=== PATIENT | female | born 1960 | race Caucasian/White ===

== ENCOUNTER 2019-11-23 08:07 | Outpatient (CLI) | payer OTHER, SELFPAY ==
--- NOTE | ~2019-11-23 | MM_ITS ---
EXAMINATION: MM screening [facility] BI w silver HISTORY: Screening mammogram TECHNIQUE: Craniocaudal and mediolateral oblique 3-D tomosynthesis images were obtained and synthetic 2-D images were generated. CAD analysis was submitted and interpreted. COMPARISON: 11/01/2018, 10/29/2017, 10/26/2016 BREAST PARENCHYMAL COMPOSITION: There are scattered areas of fibroglandular density. FINDINGS: Scattered benign-appearing calcifications are present. There is no evidence of suspicious m ass, calcification, or architectural distortion to suggest malignancy in either breast. There has bee n no suspicious interval change. IMPRESSION: 1. No mammographic evidence of malignancy. 2. Recommend routine screening mammography in one year. BI-RADS Category 2: Benign finding(s). Reviewed, dictated and finalized at location A.
== END 2019-11-23 08:08 | disposition home or self-care (01) ==
PROVIDERS: PCP Internal Medicine; Visit Provider Internal Medicine
DX: Z12.31 Encounter for screening mammogram for malignant neoplasm of breast (principal)
CPT/HCPCS: 77063; 77067

== ENCOUNTER 2020-12-04 07:53 | Outpatient (CLI) | payer OTHER, SELFPAY ==
--- NOTE | ~2020-12-04 | DEXA_ITS ---
Bone Density Report Name: Melanie Quinn Age: 60 Sex: Female Ethnicity: White Date of : 1960 Indication: postmenopausal; parental hip fracture; prior fracture; Referring Provider: Rosalie Greenfield Study: Bone densitometry was performed. Exam Date: December 04, 2020 Accession number: [id number] Bone Density: Region BMD T-score Z-score Classification AP Spine (L1-L4) 0.950 -0.9 0.6 Normal Femoral Neck (Left) 0.758 -0.8 0.5 Normal Total Hip (Left) 0.863 -0.6 0.3 Normal Total Hip Bilateral Avg 0.888 -0.4 0.5 Normal Femoral Neck (Right) 0.786 -0.6 0.7 Normal Total Hip (Right) 0.912 -0.2 0.7 Normal World Health Organization criteria for BMD impression classify patients as: Normal (T-score at or above -1.0), Osteopenia (T-score between -1.0 and -2.5), or Osteoporosis (T-score at or below -2.5). 10-year Fracture Risk: FRAX not reported because: All T-scores for Spine Total, Hip Total, Femoral Neck at or above -1.0 Previous Exams: Region Exam Age BMD T-score BMD Change BMD Change Date g/cm2 vs Baseline vs Previous AP Spine(L1-L4) 12/04/2020 60 0.950 -0.9 -0.083(-8.0%)# -0.038(-3.8%)* 02/03/2018 57 0.988 -0.5 -0.045(-4.4%)# -0.045(-4.4%)# 09/03/2011 51 1.033 -0.1 Total Hip(Left) 12/04/2020 60 0.863 -0.6 -0.088(-9.3%)# 0.007(0.8%) 02/03/2018 57 0.857 -0.7 -0.095(-10.0%) -0.095(-10.0%) 09/03/2011 51 0.951 0.1 Total Hip(Right) 12/04/2020 60 0.912 -0.2 -0.072(-7.3%)# 0.044(5.0%)* 02/03/2018 57 0.868 -0.6 -0.115(-11.7%) -0.115(-11.7%) 09/03/2011 51 0.983 0.3 *Denotes significance at 95% confidence level, LSC for AP Spine = 0.022 g/cm2, LSC for Total Hip = 0.027 g/cm2 Clinical Information Provided by Patient: Has had a low trauma fracture Parent has had a hip fracture Has used the following medications: Calcium Patient maximum height was 65 Does not regularly consume dairy products Drinks caffeinated beverages Onset of menses at age 13 Number of children 5 Impression: The patient has normal bone mass. The patient has risk factors, including: parental hip fracture, previous fracture. The BMD for the AP Spine(L1-L4) decreased, changing by -3.8% since the last DXA exam. Discussion: BONE DENSITY IS ABOVE THE MINIMUM DESIRABLE LEVEL AT ALL SKELETAL SITES TESTED. This patient?s bone mineral density is above the minimum desirable level (T-score -1.0 or better) at all sites measured. The patient should follow
--- NOTE | ~2020-12-04 | MM_ITS ---
EXAMINATION: MM screening [facility] BI w silver HISTORY: Screening TECHNIQUE: Craniocaudal and mediolateral oblique 3-D tomosynthesis images were obtained and synthetic 2-D images were generated. CAD analysis was submitted and interpreted. COMPARISON: Comparison to multiple prior studies sequentially, with oldest reviewed study dated 09/27. BREAST PARENCHYMAL COMPOSITION: There are scattered areas of fibroglandular density. FINDINGS: There is no evidence of suspicious mass, calcification, or architectural distortion to sugg est malignancy in either breast. There has been no suspicious interval change. IMPRESSION: 1. No mammographic evidence of malignancy. 2. Recommend routine screening mammography in one year. BI-RADS Category 1: Negative Reviewed, dictated and finalized at location A.
== END 2020-12-04 07:54 | disposition home or self-care (01) ==
PROVIDERS: PCP Internal Medicine; Visit Provider Obstetrics & Gynecology
DX: Z12.31 Encounter for screening mammogram for malignant neoplasm of breast (principal); Z78.0 Asymptomatic menopausal state
CPT/HCPCS: 77063; 77067; 77080

== ENCOUNTER 2021-12-10 08:26 | Outpatient (CLI) | payer OTHER, SELFPAY ==
--- NOTE | ~2021-12-10 | MM_ITS ---
EXAMINATION: MM screening [facility] BI w silver HISTORY: Screening TECHNIQUE: Craniocaudal and mediolateral oblique 3-D tomosynthesis images were obtained and synthetic 2-D images were generated. CAD analysis was submitted and interpreted. COMPARISON: Comparison to multiple prior studies sequentially, with oldest reviewed study dated 10/23. BREAST PARENCHYMAL COMPOSITION: There are scattered areas of fibroglandular density. FINDINGS: There is no evidence of suspicious mass, calcification, or architectural distortion to sugg est malignancy in either breast. There has been no suspicious interval change. IMPRESSION: 1. No mammographic evidence of malignancy. 2. Recommend routine screening mammography in one year. BI-RADS Category 1: Negative Reviewed, dictated and finalized at location A.
== END 2021-12-10 08:27 | disposition home or self-care (01) ==
LOC: ANHIMG 08:28
PROVIDERS: PCP Internal Medicine; Visit Provider Obstetrics & Gynecology
DX: Z12.31 Encounter for screening mammogram for malignant neoplasm of breast (principal)
CPT/HCPCS: 77063; 77067

== ENCOUNTER 2023-01-15 08:14 | Outpatient (CLI) | payer OTHER, SELFPAY ==
--- NOTE | ~2023-01-15 | MM_ITS ---
EXAMINATION: MM screening [facility] BI w silver HISTORY: Screening mammogram TECHNIQUE: Craniocaudal and mediolateral oblique 3-D tomosynthesis images were obtained and synthetic 2-D images were generated. CAD analysis was submitted and interpreted. COMPARISON: 12/10/2021, 12/04/2020, 11/23/2019 BREAST PARENCHYMAL COMPOSITION: There are scattered areas of fibroglandular density. FINDINGS: No suspicious mass, calcification, or architectural distortion are identified in either merissa ast to suggest malignancy. There has been no suspicious interval change. IMPRESSION: 1. No mammographic evidence of malignancy. 2. Recommend routine screening mammography in one year. BI-RADS Category 1: Negative Reviewed, dictated and finalized at location A.
== END 2023-01-15 08:15 | disposition home or self-care (01) ==
LOC: ANHIMG 08:21
PROVIDERS: PCP Internal Medicine; Visit Provider Obstetrics & Gynecology
DX: Z12.31 Encounter for screening mammogram for malignant neoplasm of breast (principal)
CPT/HCPCS: 77063; 77067

== ENCOUNTER 2023-12-20 11:10 | Outpatient (CLI) | payer OTHER, SELFPAY ==
--- NOTE | ~2023-12-20 | US_ITS ---
Renal-Bladder ultrasound Clinical History: UTI Technique: Real-time sonographic imaging of the kidneys and urinary bladder was performed. Findings: The right kidney measures 10.9 cm in length and the left kidney measures 10.9 cm. There is no hydronephrosis or renal calculus identified. Renal cortical echogenicity is within normal limits. No renal mass lesion is identified. The urinary bladder is moderately distended at the time of this exam. No intraluminal echoes are iden tified. No abnormal wall thickening is seen. Impression: Unremarkable ultrasound of the kidneys and urinary bladder. Reviewed, dictated and finalized at location M. Impression: Unremarkable ultrasound of the kidneys and urinary bladder.
== END 2023-12-20 11:11 ==
LOC: MICIMG 11:11
PROVIDERS: PCP Internal Medicine
DX: R39.9 Unspecified symptoms and signs involving the genitourinary system (principal)
CPT/HCPCS: 76775

== ENCOUNTER 2024-01-26 08:54 | Outpatient (CLI) | payer OTHER, SELFPAY ==
--- NOTE | ~2024-01-26 | MM_ITS ---
EXAMINATION: MM screening [facility] BI w silver HISTORY: Screening TECHNIQUE: Craniocaudal and mediolateral oblique 3-D tomosynthesis images were obtained and synthetic 2-D images were generated. CAD analysis was submitted and interpreted. COMPARISON: Comparison to multiple prior studies sequentially, with oldest reviewed study dated 10/29. BREAST PARENCHYMAL COMPOSITION: Not dense: There are scattered areas of fibroglandular density. FINDINGS: There is no evidence of suspicious mass, calcification, or architectural distortion to sugg est malignancy in either breast. There has been no suspicious interval change. IMPRESSION: 1. No mammographic evidence of malignancy. 2. Recommend routine screening mammography in one year. BI-RADS Category 1: Negative Reviewed, dictated and finalized at location B.
--- NOTE | ~2024-01-26 | DEXA_ITS ---
Bone Density Report Name: AMY QUIROZ Age: 63 Sex: Female Ethnicity: White Date of : 1960 Indication: postmenopausal; screening for osteoporosis; parental hip fracture; Referring Provider: TREVON, MELANIE Bowman Study: Bone densitometry was performed. Exam Date: January 26, 2024 Accession number: [id number] Bone Density: Region BMD T-score Z-score Classification AP Spine(L1-L4) 0.934 -1.0 0.7 Normal Femoral Neck (Left) 0.648 -1.8 -0.4 Osteopenia Total Hip (Left) 0.762 -1.5 -0.3 Osteopenia Femoral Neck (Right) 0.756 -0.8 0.6 Normal Total Hip (Right) 0.852 -0.7 0.4 Normal Total Hip Mean 0.807 -1.1 0.1 Osteopenia World Health Organization criteria for BMD impression classify patients as: Normal (T-score at or above -1.0), Osteopenia (T-score between -1.0 and -2.5), or Osteoporosis (T-score at or below -2.5). 10-year Fracture Risk(1): Major Osteoporotic Fracture 18% Hip Fracture 1.2% Reported Risk Factors: [place] (), Neck BMD=0.648, BMI=31.3, parental fracture (1) FRAX(R) Version 3.08. Fracture probability calculated for an untreated patient. Fracture probability may be lower if the patient has received treatment. Previous Exams: Region Exam Age BMD T-score BMD Change BMD Change Date g/cm2 vs Baseline vs Previous AP Spine (L1-L4) 01/26/2024 63 0.934 -1.0 -0.054 (-5.5%) -0.016 (-1.7%) 12/04/2020 60 0.950 -0.9 -0.038 (-3.8%) -0.038 (-3.8%) 02/03/2018 57 0.988 -0.5 Total Hip(Left) 01/26/2024 63 0.762 -1.5 -0.094 (-11.0% -0.101 (-11.7% 12/04/2020 60 0.863 -0.6 0.007 (0.8%) 0.007 (0.8%) 02/03/2018 57 0.857 -0.7 Total Hip(Right) 01/26/2024 63 0.852 -0.7 -0.016 (-1.9%) -0.060 (-6.6%) 12/04/2020 60 0.912 -0.2 0.044 (5.0%)* 0.044 (5.0%)* 02/03/2018 57 0.868 -0.6 *Denotes significance at 95% confidence level, LSC for AP Spine = 0.022 g/cm2, LSC for Total Hip = 0.027 g/cm2 Clinical Information Provided by Patient: Parent has had a hip fracture Has used the following medications: Vitamin D, Calcium Patient maximum height was 64.0 Drinks caffeinated beverages Onset of menses at age 13 Number of children 5 Missed period for more than 6 months in a row Impression: The patient has low bone mass, based on the Left Femoral Neck T-score. The patient has an estimated ten-year risk of hip fracture of 1.2% and an estimated ten-year risk of major fracture of 18%, ba
== END 2024-01-26 08:55 | disposition home or self-care (01) ==
PROVIDERS: PCP Internal Medicine; Visit Provider Nurse Practitioner
DX: Z12.31 Encounter for screening mammogram for malignant neoplasm of breast (principal); Z78.0 Asymptomatic menopausal state; M85.89 Other specified disorders of bone density and structure, multiple sites
CPT/HCPCS: 77063; 77067; 77080

== ENCOUNTER 2025-02-22 09:47 | Outpatient (CLI) | payer OTHER, SELFPAY ==
--- OUTSIDE RECORDS SUMMARY | 2013-04-28 03:30 | XMS_ITS | Continuity of Care Document ---
Author Organization [facility] Address [address] [facility] ut[address] Malcolm [address] [place] [phone] Phone Care Team Providers Care Curator [employer] Name Role Phone Fernando Ram MD, FACS Unavailable Unavailab le Allergies, Adverse Reactions, Alerts Substance Reaction Status Criticality ibuprofen Active No Information Medications Medication Instructions Dosage Effective Dates (start - stop) Status Comments Refresh Tears 0.5 % Eye Drops - Active Simvastatin 10 mg Tab take 1 tablet (10M G) by ORAL route every day in the evening 10 MG - Active Lisinopril 40 mg Tab take 1 tablet (40MG ) by ORAL route every day 40 MG - Active Nabumetone 750 mg Tab take 1 tablet (750 MG) by ORAL route 2 times every day 750 MG - Active Aspirin 81 mg Tab, Delayed Release take 1 tablet (81MG) by ORAL route every day 81 MG - Active Procedures Procedure Date Office/outpatient Visit, Est Corneal Pachymetry Fundus Photography W/ Report Post-op Follow-up Visit Post-op Follow-up Visit Removal Of Eye Lesion Removal Of Eye Lesion Office/outpatient Visit, [facility] No Charge Refraction Corneal Pachymetry IOLMaster Fundus Photography W/ Report Advance Directives Directive Yes / No Effective Date File Name Resuscitation Not Answered N/A N/A Life Support Not Answered N/A N/A Intubation Not Answered N/A N/A Antibiotics Not Answered N/A N/A IV Fluid Support Not Answered N/A N/A Tube Feed Not Answered N/A N/A Other Directive N/A N/A WARNING:The information contained in this section is historical and is provided for information only and does not constitute a legal document or any assurance that the information is still accurate. Please verify the information with the currie of the legal document before using it for clinical purposes. 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 [place] [address] [facility], [address], [place], [place], [address], [place]. tel:[phone] Referring Provider: Cal Ribeiro OD, [address] [place], [address]. tel:[phone] [facility], [address], [place], [place], [address], [place] tel:[phone] SEC Erik Bray FOLLOW-UP SURGERY NOS 3 Yo King. [address] [address] [facility], [address], [place], [place], [address], [place]. tel:[phone] Referring Provider: Cal Ribeiro OD, [address] [place], [address]. tel:[phone] [facility], [address] [place] [address] [address], [place], [place], [address], [place] tel:[phone] SEC Erik Bray No Information [address] [facility], [address], [place], [place], [address], [place]. tel:[phone] Referring Provider: Cal Ribeiro OD, [address] [place], [address]. tel:[phone] [facility], [address] [facility] [address], [place], [place], [address], tel:[phone] SEC [facility] No Information 3 Yo Fernando. [address] [employer], [address], [place], [place], [address], . tel:[phone] Referring Provider: Cal Ribeiro OD, [address] [place], [address]. tel:[phone] Office/outpat ient Visit, [facility], [address] [facility] [address], [place], [place], [address], tel:[phone] SEC Erik N Lindbergh ENDOTHEL CORNEA DYSTRPHYSENILE NUCLEAR CATARACTDRUSEN (DEGENERATIVE) [address] Fernando. [address] [employer], [address], [place], [place], [address], [place]. tel:[phone] Referring Provider: Cal Ribeiro OD, [address] [place], [address]. tel:[phone] [facility], [address] [facility] [address], [place], [place], [address], tel:[phone] SEC Erik N Lindbergh No Information 3 Wu Jimenez. [address] [facility], [address], [place], [address], [place]. tel:[phone] Family History Family Member Type Diagnosis Age At Onset Sister Problem (finding) Fuch's Dystrophy Payers Payer name Insurance type Covered green party ID Heath martínez(tiana) Ariane [facility] BL [id number] Social History Type Description Quantity Date Captured Comments Alcohol Use Details Caffeine Use Details Tobacco Use Status No Information Smoking Status Never smoker Non-Smoking Tobacco Use Details : No Details Available : No Details Available Sex Female Chief Complaint And Reason For Visit No Information Reason For Referral Reason For Referral No Information History Of Present Illness Encounter Date Complaint History Of Prese nt Illness No Information Functional Status Date Functional Assessmen t No Information Instructions Date Instruction Genesis larsen - 1 yr complete exam Related to See impression: general plan General plan -ENDOTH EL CORNEA DYSTRPHY -SENILE NUCLEAR CATARACT -DRUSEN (DEGENERATIVE) - Discussed dx with pt, and explained signs of fuchs progression. Discussed gtts for itching, if indicated by with call. Continue ATs as needed. pt instructed to return to clinic sooner if vision worsens Educational materials provided:Fuchs Dystrophy and Cataract. Related to See impression: general plan FOLLOW-UP SURGERY NO S, s/p PTK OU, vision affected - Discussed Fuchs with pt, after PTK, and pt understands progression. pachs on return to monitor. Rec Systane Gel gtts for the morning, but rec using prior to going to sleep samples given. Spec Rx discussed. If desired pt can see Dr. Ribeiro for Rx. 6 months with Pachs.Letter dictated to Dr. Ribeiro. Related to FOLLOW-UP SURGERY NOS - 6 months follow up with Pachs Related to FOLLOW-UP SURGERY NOS Rough Epi OS after P TK - DC vigamox after tomorrow Taper Pred Mild AT's PRN - 1 Month Cataract, Nuclear Sc lerosis, OU - established, worsening - vision affected - Discussed cataract progression with pt, and pt aware r/a/b of this procedure, and TRIPLE DSAEK also explained. Discussed TORIC IOL at the time of CE, but stable measurements need to be obtained. Pt understands the possibility of spec wear after CE, and she will at least need specs for reading, If unable to have TORIC IOL she will need specs fulltime. 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 Pt understands treatment options. She is aware that measurement for CE may be difficult to obtain due to this cornea condition. Discussed treatment of ABMD first, and obtain most accurate measurements after this procedure is completed. Discussed PTK with pt, and pt aware she can proceedbwith OU if desired. Orbscan needed today. Pt given RX for Lyrica, Discussed use, and pt aware Yolis will advise Related to ANT CORNEA DYSTROPHY [facility] - sched PTK OU 1st with Yolis Re lated to ANT CORNEA DYSTROPHY [facility] Fuch's dystrophy, OU - vision affected - Discussed dx with pt, and treatment options discussed. Pt aware possibility of progression after cataract surgery. Pt understands her options for treatment (DSAEK)Pt understands r/a/b of DSAEK and aware she will have suture placement, and she will need to lie flat facing the ceiling to have the graft seal in the desired position. Pt understands risks of rejections and failures, and continued drop use to prevent this. Related to Fuch's dystrophy Drusen, OU - vision not affected - will continue to monitor - no treatment required at this time Related to Drusen Assessments Type Assessment Date No Information Patient Care Teams Name Effective Dates (start - stop) Status Members No Information
--- NOTE | ~2025-02-22 | MM_ITS ---
EXAMINATION: MM screening william BI w silver HISTORY: Screening TECHNIQUE: Craniocaudal and mediolateral oblique 3-D tomosynthesis images were obtained and synthetic 2-D images were generated. CAD analysis was submitted and interpreted. COMPARISON: 01/26/2024 BREAST PARENCHYMAL COMPOSITION: Not Dense: The breasts are almost entirely fatty. FINDINGS: There is no evidence of suspicious mass, calcification, or architectural distortion to suggest malignancy. There has been no suspicious interval change. IMPRESSION: 1. No mammographic evidence of malignancy. Recommend routine screening mammography in one year. BI-RADS Category 2: Benign finding(s) Reviewed, dictated and finalized at location Q. IMPRESSION: 1. No mammographic evidence of malignancy. Recommend routine screening mammogra phy in one year. BI-RADS Category 2: Benign finding(s)
--- OUTSIDE RECORDS SUMMARY | 2025-02-22 10:20 | XMS_ITS | Patient Health Record ---
Author Organization [facility] Address [address] [place], [place] [id number] Care Team Providers Care Mercury Recoverer Name Role Phone CHALO LEMUS Unavailable [phone] Guillermo Renee Unavailable Unavailable Reason For Referral No Information Medications Medication SIG (Take, Route, Frequency, Duration) Notes Start Date End Date Status aspirin 81 MG Delayed Release Oral Tablet ORAL aspirin 81 MG Delayed Releas e Oral TabletOriginal Medicationaspirin 81 MG Delayed Release Oral Tablet *Reorder from Sensorly for eRx and Interaction Alerts* 08/20/19 21 Active docosahexaenoic acid 120 MG / eicosapentaenoic acid 180 MG Oral Capsule ORAL docosahexaenoic acid 120 MG / eicosapentaenoic acid 180 MG Oral CapsuleOriginal Medicationdocosahexaenoic acid 120 MG / eicosapentaenoic acid 180 MG Oral Capsule *Reorder from Sensorly for eRx and Interaction A 08/20/19 21 Active calcium carbonate 1250 MG / cholecalciferol 200 UNT Oral Tablet ORAL calcium carbonate 1250 MG / cholecalciferol 200 UNT Oral TabletOriginal Medicationcalcium carbonate 1250 MG / cholecalciferol 200 UNT Oral Tablet *Reorder from Sensorly for eRx and Interaction Alerts* 08/20/19 21 Active Plan Of Treatment No Information Insurance Providers Payer Name Payer Address Payer Phone Subscriber Number Group Number Insured Name Patient Relationship to Insured Coverage Start Date Coverage End Date [facility] [address] [address] [place] [id number] SULY QUIROZ Spouse - patient is the spouse of the insured
--- OUTSIDE RECORDS SUMMARY | 2025-02-22 10:20 | XMS_ITS | Clinical Summary ---
Author Organization [facility] [employer] Address [address] [place] [address] Care Team Providers Care Nursery Worker Name Role Phone Guillermo Renee MD Primary Care Provider [phone] Allergies No known active allergies Medications carvediloL (COREG) 12.5 mg tablet Take 1 tablet (12.5 mg total) by mouth 2 (two) times a day 08/01/2024 Active simvastatin (ZOCOR) 10 mg tablet Take 1 tablet (10 mg total) by mouth daily 08/01/2024 Active topiramate (TOPAMAX) 100 mg tablet Take 1 tablet (100 mg total) by mouth 2 (two) times a day 08/01/2024 Active lisinopriL (PRINIVIL,ZESTR [place]) 40 mg tablet Take 1 tablet (40 mg total) by mouth daily 08/01/2024 Active loratadine (CLARITIN) 10 mg tablet Take 1 tablet (10 mg total) by mouth daily Active omega-3 fatty acids-fish oil 300-1,000 mg capsule Take 2 capsules (2 g total) by mouth daily Active multivitamin with minerals capsule Take by mouth Active Active Problems Problem Noted Date Diagnosed Date Tinnitus of both ears 11/09/2024 Sensorineural hearing loss (SNHL) of both ears 0 11/09/2024 Surgical History Surgery Date Site/Laterality Comments SINUS SURGERY CHOLECYSTECTOMY LASIK Medical History Medical History Date Comments HTN (hypertension) Tinnitus HL (hearing loss) Family History Medical History Relation Name Comments Heart disease Father Heart disease Maternal Grandfather Heart disease Maternal Grandmother Heart disease Paternal Grandfather Heart disease Paternal Grandmother Relation Name Status Comments Father Maternal Grandfather Maternal Grandmother Paternal Grandfather Paternal Grandmother Social History Tobacco Use Types Packs/Day Years Used Date Smoking Tobacco: Never Tobacco Cessation:Counseling Given: Not Answered Comments Unknown Sex and Gender Information Value Date Recorded Sex Assigned at Not on file 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 Gender Identity Not on file Sexual Orientation Not on file Obstetrics History Last Filed Vital Signs Vital Sign Reading Time Taken Comments Blood Pressure - - Pulse - - Temperature - - Respiratory Rate 18 11/09/2024 2:59 PM CDT Oxygen Saturation - - Inhaled Oxygen Concentration - - Weight 79.4 kg (175 lb) 11/09/2024 2:59 PM CDT Height 165.1 cm (5' 5) 11/09/2024 2:59 PM CDT Body Mass Index 29.12 11/09/2024 2:59 PM CDT Plan of Treatment Health Maintenance Due Date Last Done Comments Breast Cancer Screening-Mammogram 1960 Cervical Cancer Screening 1960 Colon Cancer Screening-Colonoscopy 1960 Depression Screening 1960 Hepatitis C Screening 1960 Hepatitis B Screening 02/24/1978 Regular Well Visit/Exam 18-64 02/24/1978 Covid-19 Vaccine ( season) 2025 05/03/2021, 08/16/2020, 07/19/2020 Influenza Vaccine (#1) 2025 , 03/04/2023, 03/05/2022, Additional history exists DTaP/Tdap/Td Vaccine (3 - Td or Tdap) 04/20/2028 04/20/2018, 09/16/2016 Zoster Vaccine Completed 05/23/2019, 03/09/2019 Pneumococcal vaccine <65 Aged Out No longer eligible based on patient's age to complete this topic Insurance [facility] Care Teams Nursery Worker Relationship Specialty Start Date End Date Guillermo Renee MD [address] [place] [address] PCP - General Internal Medicine 10/12/24
--- OUTSIDE RECORDS SUMMARY | 2025-02-22 10:20 | XMS_ITS | Clinical Summary ---
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 Active omega-3 fatty acid 1000 MG capsule Take 1 capsule (1,000 mg total) by mouth 2 (two) times daily. Active carvedilol (COREG) 12.5 MG tabletIndicati ons:HTN (hypertension) Take 1 tablet by mouth twice daily 180 tablet 1 08/01/19 25 Active simvastatin (ZOCOR) 10 MG tabletIndicati ons:Hyperchole sterolemia TAKE 1 TABLET BY MOUTH NIGHTLY AT BEDTIME 90 tablet 1 08/01/19 25 Active methylPREDNISo MARÍA ELENA collins, (MEDROL DOSEPAK) 4 MG tabletIndicati ons:Wheezing Follow package directions 1 each 10/12/19 25 Active guaiFENesin-co deine (GUAIFENESIN AC) 100-10 MG/5ML syrupIndicatio ns:Cough Take 5 mLs by mouth every 4 (four) hours as needed for Cough. Indications: Cough 118 mL 10/12/19 25 Active Albuterol-[place] sonide (AIRSUPRA) 90-80 MCG/ACT AerosolIndicat ions:Wheezing Inhale 2 puffs into the lungs every 4 (four) hours as needed. 10.7 g 10/12/19 25 Active lisinopril (PRINIVIL) 40 MG tabletIndicati ons:HTN (hypertension) Take 1 tablet (40 mg total) by mouth daily. 90 tablet 3 12/05/19 25 Active topiramate (TOPAMAX) 100 MG tabletIndicati ons:Frequent headaches Take 1 tablet (100 mg total) by mouth 2 (two) times daily. 180 tablet 2 12/05/19 25 Active Multiple Vitamin (MULTIVITAMIN ADULT OR) Take by mouth Active tirzepatide-we ight management (ZEPBOUND) 5 mg/0.5 mL injectionIndic ations:Weight Loss Inject 5 mg into the skin every 7 days. Indications: Weight Loss 2 mL 02/16/20 25 Active tirzepatide (ZEPBOUND) 5 MG/0.5ML injectionIndic ations:Weight Loss Inject 5 mg into the skin once a week. Indications: Weight Loss 2 mL 02/09/20 25 025 Discontinued tirzepatide (ZEPBOUND) 5 MG/0.5ML injectionIndic ations:Weight Loss Inject 5 mg into the skin once a week. Indications: Weight Loss 2 mL 02/10/20 25 025 Discontinued(Fo rmulary change) tirzepatide-we ight management (ZEPBOUND) 5 mg/0.5 mL injectionIndic ations:Weight Loss Inject 5 mg into the skin every 7 days. Indications: Weight Loss 2 mL 02/14/20 25 025 Discontinued tirzepatide-we ight management (ZEPBOUND) 5 mg/0.5 mL injectionIndic ations:Weight Loss Inject 5 mg into the skin every 7 days. Indications: Weight Loss 2 mL 02/15/20 25 025 Discontinued Active Problems Problem Noted Date Diagnosed Date Vitamin D deficiency 07/10/2024 Atypical squamous cells of u ndetermined significance (ASCUS) on Papanicolaou smear of cervix 10/23/2020 Human papilloma virus infection 10/23/2020 Essential hypertension 09/25/2020 Post-menopausal 01/27/2018 Hypercholesterolemia 01/17/2018 Eczema 09/20/2017 Renal calculus, right 07/15/2017 Resolved Problems Problem Noted Date Diagnosed Date Resolved Date Obesity with body mass index 30 or greater 09/25/2020 07/21/2024 Elbow fracture, left 07/23/2017 025 Humeral distal fracture 07/23/2017/09/2024 Arm pain 07/22/2017 07/21/2024 Right flank pain 07/15/2017 07/21/2024 Bronchitis 06/18/2016 07/21/2024 Obesity 03/12/2016 07/21/2024 Encounters Date Type Department Care Team Description 02/08/2025 Telephone [facility] Internal [address] [phone] Guillermo Renee MD Medication Request 02/08/2025 Results Follow-Up [address] [address] Chely White APNP COLOGUARD (EXACT SCIENCE) 01/18/2025 1:40 PM CDT Office Visit [address] [phone] Guillermo Renee MD Weight Problem (Patient presenting to the office to discuss weight loss medication - ) 01/18/2025 Travel 01/02/[address] [address] Guillermo Renee MD Medication Request (Zepbound rx ) from Last 3 Months Immunizations Immunization Administration Dates Next Due Influenza Adult (Generic) 03/10/2018,04/01/2017, 04/16/2014 MODERNA COVID-19 (12+) MRNA, LNP-S, PF, 100 MCG/ 0.5 ML DOSE 08/16/2020,07/19/2020 MODERNA COVID-19 ([employer]OV[employer] RONIT), MRNA, LNP-S, PF, 50 MCG/ 0.25 ML DOSE 05/03/2021 Shingrix 05/23/2019,03/09/2019 Tdap (Generic) 04/20/2018,09/16/2016 Family History Medical History Relation Comments Heart Disease Father And both grandfa thers -heart disease Hypertension Father [place] Father Hyperlipidemia Maternal Grandfather Hyperlipidemia Paternal Grandfather Kidney Disease Paternal Grandfather Relation Status Comments Daughter Alive Father Maternal Grandfather Maternal Grandmother Mother Alive Paternal Grandfather Paternal Grandmother (Age 100) Sister Alive Son 1 Alive Son 2 Alive Son 3 Alive Son 4 Alive Social History Tobacco Use Types Packs/Day Years Used Date Smoking Tobacco: Never Smokeless Tobacco: Never Tobacco Cessation:Counseling Given: Not Answered Alcohol Use Standard Drinks/Week Comments No 0 (1 standard drink = 0.6 oz pur e alcohol) rarely drinks alcohol PHQ-2 Answer Date Recorded Patient Health Questionnaire-2 Score 0 07/18/2024 Comments No Sex and Gender Information Value Date Recorded Sex Assigned at Female 07/18/2024 11:27 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 Sex Female 3:50 PM CDT Gender Identity Not on file Sexual Orientation Not on file Last Filed Vital Signs Vital Sign Reading Time Taken Comments Blood Pressure 124/64 01/18/2025 2:03 PM CDT Pulse 66 01/18/2025 2:03 PM CDT Temperature 36.7 C (98.1 F) 01/18/2025 2:03 PM CDT Respiratory Rate 18 01/18/2025 2:03 PM CDT Oxygen Saturation 98% 01/18/2025 2:03 PM CDT Inhaled Oxygen Concentration - - Weight 81.4 kg (179 lb 6.4 oz) 01/18/2025 2:03 P M CDT Height 165.1 cm (5' 5) 01/18/2025 2:03 PM CDT Body Mass Index 29.85 01/18/2025 2:03 PM CDT Plan of Treatment Health Maintenance Due Date Last Done Comments Hepatitis C 02/24/1978 Pneumococcal Vaccine: 50+ Years (1 of 1 - PCV) 02/24/2010 COVID-19 Vaccine ( season) 2025 05/03/2021, 08/16/2020, 07/19/2020 Annual Physical 07/18/2025 07/18/2024 Mammogram Screening 01/25/2026 01/26/2024, 01/15/2023, 12/10/2021, Additional history exists Cervical Cancer Screening Pap with HPV Testing (Age 30 to 64) Every 5 Years 04/21/2026 04/21/2021, 10/07/2020 Cervical Cancer Screening Pap Smear (Age 30 to 64) Every 3 Years 09/19/2027 09/18/2024, 09/16/2023, 03/15/2023, Additional history exists Cervical Cancer Screening with HPV 09/19/2027 Colorectal Cancer Screening FIT-DNA (3 Years) 01/30/2028 01/29/2025 DTaP, Tdap and Td Vaccines (3 - Td or Tdap) 04/20/2028 04/20/2018, 09/16/2016 RSV Immunization or 60+ Years (1 - 1-dose 75+ series) 02/24/2035 Zoster Vaccines Completed 05/23/2019, 03/09/2019 PHQ-2 (Physician [place]) Completed 07/18/2024 Meningococcal B Vaccine Aged Out No l onger eligible based on patient's age to complete this topic Meningococcal Vaccine Aged Out No estela danielle eligible based on patient's age to complete this topic RSV Immunizations Under 20 Months Aged Out No longer eligible based on patient's age to complete this topic Procedures Procedure Name Priority Date/Time Associated Diagnosis Comments COLOGUARD (EXACT SCIENCE) Routine 01/29/2025 8:50 AM CDT Screen for colon cancer MAMMOGRAM GENERIC (SCAN ORDER) 01/26/2024 from Last 3 Months or Most Recently Relevant to Health Maintenance Results * COLOGUARD (EXACT SCIENCE) (01/29/2025 8:50 AM CDT) COLOGUARD RESULT Negative Negative [facility]a (CLIA #:[id number]) Comment: The Cologuard (TM) test was performed on this specimen. NEGATIVE TEST RESULT. A negative Cologuard result indicates a low likelihood that a colorectal cancer (CRC) or advanced adenoma (adenomatous polyps with more advanced pre-malignant features) is present. The chance that a person with a negative Cologuard test has a colorectal cancer is less than 1 in 1500 (negative predictive value >99.9%) or has an advanced adenoma is less than 5.3% (negative predictive value 94.7%). These data are based on a prospective cross-sectional study of 10,000 individuals at average risk for colorectal cancer who were screened with both Cologuard and colonoscopy. (Mireya Rodriguez, N Engl J Med 2014;370(14):1286- 1297) The normal value (reference range) for this assay is negative. COLOGUARD RE-SCREENING RECOMMENDATION: Periodic colorectal cancer screening is an important part of preventive healthcare for asymptomatic individuals at average risk for colorectal cancer. Following a negative Cologuard result, the [place] [employer] and U.S. Multi-Society Task Force screening guidelines recommend a Cologuard re-screening interval of 3 years. References: [place] [employer] Guideline for Colorectal Cancer Screening: https://www.cancer.org/cancer/kfore-oxgnhz-dkcikw/bzrbbzfzv-nydagbivz-tbjzxbg/ac s-rec ommendations.html.; Josep DK, Emily DE LEON, Kian JonesK, Colorectal Cancer Screening: Recommendations for Physicians and Patients from the U.S. Multi-Society Task Force on Colorectal Cancer Screening , Am J Gastroenterology 2017; 112:3101-8617. TEST DESCRIPTION: Composite algorithmic analysis of stool DNA-biomarkers with hemoglobin immunoassay. Quantitative values of individual biomarkers are not reportable and are not associated with individual biomarker result reference ranges. Cologuard is intended for colorectal cancer screening of adults of either sex, 45 years or older, who are at average-risk for colorectal cancer (CRC). Cologuard has been approved for use by the U.S. FDA. The performance of Cologuard was established in a cross sectional study of average-risk adults aged 50-84. Cologuard performance in patients ages 45 to 49 years was estimated by sub-group analysis of near-age groups. Colonoscopies performed for a positive result may find as the most clinically significant lesion: colorectal cancer [4.0%], advanced adenoma (including sessile serrated polyps greater than or equal to 1cm diameter) [20%] or non- advanced adenoma [31%]; or no colorectal neoplasia [45%]. These estimates are derived from a prospective cross-sectional screening study of 10,000 individuals at average risk for colorectal cancer who were screened with both Cologuard and colonoscopy. (Mireya Rodriguez, N Engl J Med 2014;370(14):2719-4654.) Cologuard may produce a false negative or false positive result (no colorectal cancer or precancerous polyp present at colonoscopy follow up). A negative Cologuard test result does not guarantee the absence of CRC or advanced adenoma (pre-cancer). The current Cologuard screening interval is every 3 years. ([place] [employer] and U.S. Multi-Society Task Force). Cologuard performance data in a 10,000 patient pivotal study using colonoscopy as the reference method can be accessed at the following location: www.[employer].com/results. Additional description of the Cologuard test process, warnings and precautions can be found at www.cologuard.com. STOOL STOOL SPECIMEN / Unknown 01/29/2025 8:50 AM CDT 01/31/2025 1:51 PM CDT Guillermo Renee MD BODY FLUIDS AND STOOLS ORDERAB LES Final Result [employer] [facility] [address] [place] [address], [place] [phone] [facility] [employer] (CLIA #:[id number]) [address] [place] [address] * MAMMOGRAM GENERIC (SCAN ORDER) (01/26/2024) Anatomical Region Laterality Modality Other 01/26/2024 [facility] Scanned SCANNING Final Resu lt from Last 3 Months or Most Recently Relevant to Health Maintenance Insurance CONSOCIATE Care Teams Cement Worker Relationship Specialty Start Date End Date Guillermo Renee MD [address] [place] [id number] PCP - General INTERNAL MEDICINE 09/29/18 Guillermo Renee MD [address] [place] [address] INTERNAL MEDICINE 10/20/17
== END 2025-02-22 09:48 | disposition home or self-care (01) ==
LOC: ANHFOHIMG 09:49
PROVIDERS: PCP Internal Medicine; Visit Provider Internal Medicine
DX: Z12.31 Encounter for screening mammogram for malignant neoplasm of breast (principal)
CPT/HCPCS: 77063; 77067